=== PATIENT | male | born 1995 | race Caucasian/White ===

== ENCOUNTER 2021-12-09 12:43 | Emergency (ER) | payer OTHER, SELFPAY ==
[2021-12-09 12:52] VITALS: BP 139/91; PULSE 93; RESP 18; TEMP 37.2; O2SAT 100
--- NOTE | 2021-12-09 13:25 | ED.SKABFB ---
HPI - Skin/Abscess/Foreign Bdy General Chief complaint: Skin/Abscess/Foreign Body Stated complaint: left leg infection Time Seen by Provider: 12/09/21 13:00 Source: patient, RN notes reviewed and old records reviewed Mode of arrival: ambulatory Limitations: no limitations History of Present Illness HPI narrative: 26-year-old male presents to [facility] care with complaints of 3-day history of open draining wound to the back of his left lower leg. He states he thinks it started as a mosquito bite and he thins he has scratched it causng open wound which is draining some yellow stuff, he cleansed it with H2O2 and put Neosporin ointment on wound and covered with dressing. Tetanus is not up to date. MD complaint: lesion Tetanus up to date: unsure Treatments prior to arrival: other (Hydrogen peroxide and Neosporin ointment) Related Data Home Medications Medication Instructions Recorded Confirmed clonazepam 0.5 mg tablet 0.5 mg PO HS 12/09/21 12/09/21 Allergies Allergy/AdvReac Type Severity Reaction Status Date / Time No Known Allergies Allergy Verified 12/09/21 13:19 Review of Systems Review of Systems: CONSTITUTIONAL: Denies fever, chills, or sweats. EYES: Denies visual changes, redness, or discharge. ENT: Denies rhinorrhea, congestion, sore throat, or otalgia. CARDIOVASCULAR: Denies chest pain, palpitations, or edema. RESPIRATORY: Denies cough or dyspnea. GASTROINTESTINAL: Denies abdominal pain, nausea, vomiting, or diarrhea. GENITOURINARY: Denies dysuria or hematuria. SKIN: Denies rash or itching.positive for open wound 1cm X 2cm open draining wound posterior left lower leg with surrounding redness and warm, yellow tinged drainage noted. MUSCULOSKELETAL: Denies back pain, joint pain, or myalgia. NEUROLOGIC: Denies headache, numbness, or weakness. PSYCHIATRIC: Positive for anxiety or depression. All systems reviewed & are unremarkable except as noted in HPI and below PMFSH Past Medical History Medical History (Updated 12/11/21 @ 21:32 by Anuja Rueda NP) Anxiety Social History Social History (Updated 12/11/21 @ 21:33 by Anuja Rueda NP) Smoking packs per day: 0.5 Smoking cigarettes per day: 10.0 Years smoked: 9 Smoking pack-years: 4.50 Smoking status: Current every day smoker Tobacco type: cigarettes Alcohol intake: current Alcohol use details: social Substance use type: does not use Living arrangements: with family Gender identity (if verbalized by the patient): Male Comments At time of signature, agree with nursing past medical, surgical, social and family history. There is no relevant family history pertinent to the presenting complaint Exam Narrative: GENERAL: Well-appearing, well-nourished, and in no acute distress. HEAD: Normocephalic, atraumatic. EYES: PERRLA and EOMI. ENT: Nares clear, no rhinorrhea or epistaxis. Mucous membranes moist.TM's normal with good light reflex, throat pink with no lesions or exudates. NECK: Supple.No lymphadenopathy CHEST: Clear to auscultation. No respiratory distress.SAO2 100% on room air HEART: Regular rate and rhythm. No murmur heard. Normal peripheral pulses. ABDOMEN: Soft, nontender, nondistended, normal active bowel sounds. EXTREMITIES: Normal range of motion. No edema. SKIN: Warm, dry, no rash. 1cmX 2cm .open draining wound to posterior aspect of left lower leg with some yellowish drainage, surrounding redness with some warmth of tissue NEURO: No focal deficits. Alert and oriented x3. Course Course Level of Care: Express Care Visit Vital Signs Vital signs: Vital Signs Temperature 37.2 C 12/09/21 12:52 Pulse Rate 93 12/09/21 12:52 Respiratory Rate 18 12/09/21 12:52 Blood Pressure 139/91 H 12/09/21 12:52 Pulse Oximetry 100 12/09/21 12:52 Oxygen Delivery Room Air 12/09/21 12:52 Temperature 37.2 C 12/09/21 12:52 Pulse Rate 93 12/09/21 12:52 Respiratory Rate 18 12/09/21 12:52 Blood Pressure 139/91 H 0
[2021-12-09] MEDS: TETANUS,DIPHTHERIA,AC PERTUSSIS ADULT (0.5 ML) BOOSTRIX IM (13:50)
== END 2021-12-09 14:05 | disposition home or self-care (01) ==
PROVIDERS: Emergency Provider Registered Nurse; PCP Nurse Practitioner Family
DX: L03.116 Cellulitis of left lower limb (principal); S81.802A Unspecified open wound, left lower leg, initial encounter; X58.XXXA Exposure to other specified factors, initial encounter; Z23 Encounter for immunization; F17.210 Nicotine dependence, cigarettes, uncomplicated; F41.9 Anxiety disorder, unspecified
CPT/HCPCS: 90471; 90715; 99213; G0463

== ENCOUNTER 2024-01-15 11:28 | Emergency (ER) | payer OTHER, MEDICAID, SELFPAY ==
--- NOTE | ~2024-01-15 | XR_ITS ---
HISTORY: injury TWIST X 1 DAY LAT MALLEOLAR SWELLING PAIN COMPARISON: None TECHNIQUE: 3 views of the left ankle FINDINGS: Soft tissue swelling is identified over the lateral malleolus. No acute or subacute fracture is appreciated. No significant joint space narrowing or degenerative disease. IMPRESSION: Soft tissue swelling without acute fracture. Reviewed, dictated and finalized at location A.
[2024-01-15 11:31] VITALS: BP 136/85; PULSE 97; RESP 17; TEMP 36.6; O2SAT 98
--- NOTE | 2024-01-15 12:23 | ED.LOWEXIN ---
HPI - Extremity Injury (Lower) General Chief Complaint: Extremity Injury, Lower Stated Complaint: left ankle injury Time Seen by Provider: 01/15/24 11:44 History of Present Illness HPI Narrative: Patient rolled his ankle yesterday going down the stairs, has been using his crutches because it hurts to stand or walk, has been using ice and keeping his leg elevated. Related Data Home Medications Medication Instructions Recorded Confirmed clonazepam 0.5 mg tablet 0.5 mg PO HS 12/09/21 12/09/21 Allergies Allergy/AdvReac Type Severity Reaction Status Date / Time No Known Allergies Allergy Verified 01/15/24 11:28 Review of Systems Review of Systems: All systems reviewed & are unremarkable except as noted in HPI and below PMFSH Past Medical History Medical History (Updated 01/15/24 @ 12:11 by January Beal MD) Anxiety Social History Social History (Updated 12/11/21 @ 21:33 by Anuja Rueda NP) Smoking packs per day: 0.5 Smoking cigarettes per day: 10.0 Years smoked: 9 Smoking pack-years: 4.50 Smoking status: Current every day smoker Tobacco type: cigarettes Alcohol intake: current Alcohol use details: social Substance use type: does not use Living arrangements: with family Gender identity (if verbalized by the patient): Male Exam Narrative: EXAMINATION OF ORGAN SYSTEMS/BODY AREAS: Constitutional: Vital signs per nursing GENERAL:[No acute distress, non-toxic appearing.] HEAD: Normal with no signs of head trauma. EYES: EOMI, conjunctiva normal ENT: Hearing grossly intact LUNGS: Nonlabored breathing. HEART: [Regular rate and rhythm], normal DP pulse ABD: [Soft], [nontender to palpation] EXT: Slight swelling and tenderness lateral left ankle; no swelling or tenderness to the foot SKIN: tiny abrasion right anterior lower leg NEURO: [Alert and oriented x 3. No gross focal sensory or strength deficits.] PSYCH: Normal affect Course Vital Signs Vital signs: Vital Signs Temperature 97.9 F 01/15/24 11:31 Pulse Rate 97 01/15/24 11:31 Respiratory Rate 17 01/15/24 11:31 Blood Pressure 136/85 01/15/24 11:31 Pulse Oximetry 98 01/15/24 11:31 Oxygen Delivery Room Air 01/15/24 11:31 Temperature 97.9 F 01/15/24 11:31 Pulse Rate 97 01/15/24 11:31 Respiratory Rate 17 01/15/24 11:31 Blood Pressure 136/85 01/15/24 11:31 Pulse Oximetry 98 01/15/24 11:31 Oxygen Delivery Room Air 01/15/24 11:31 MDM - Extremity Injury (Lower) MDM Narrative Medical decision making narrative: MEDICAL DECISION MAKING AND COURSE IN THE ED WITH INTERPRETATION/REVIEW OF DIAGNOSTIC STUDIES: Electronic medical record was reviewed. This patient was seen by myself. Patient presented to the ED with complaint of [left ankle pain after inversion injury]. Vitals [were within acceptable limits]. Physical exam revealed tenderness at lateral left ankle. Based on the patient's history and physical exam, I am concerned for fracture vs sprain. Ankle x-ray thankfully negative for acute fracture on my independent interpretation ENRIQUE wrap applied to injured extremity. Patient given strict return precautions if pain is worse or there is poor blood flow to the extremity, and advised to rest the limb and to followup with orthopedics as needed. Discharge Plan Discharge Clinical Impression: Ankle sprain and strain Patient Disposition: Home, Self-Care Condition: Stable Instructions: Antibiotic Form, Ankle Sprain (ED) Additional Instructions: Your x-ray does not show any broken ankle. Keep your ankle in a Enrique wrap, keep it elevated, use ice for the 1st few days, take Tylenol and ibuprofen as needed, and follow-up with your doctor. You can always come back to the ER for any further issues. Prescriptions: New acetaminophen [Tylenol Extra Strength] 500 mg tablet 1,000 mg PO Q6H PRN (Reason: pain) Qty: 50 0RF ibuprofen 600 mg tablet 600 mg PO TID PRN (Reason: f
--- NOTE | 2024-01-15 12:30 | PC.NURSE ---
pt did not want enid wrap and crutches, pt had his own
== END 2024-01-15 12:30 | disposition home or self-care (01) ==
PROVIDERS: Emergency Provider Emergency Medicine; PCP Nurse Practitioner Family
DX: S93.402A Sprain of unspecified ligament of left ankle, initial encounter (principal); W10.9XXA Fall (on) (from) unspecified stairs and steps, initial encounter; F41.9 Anxiety disorder, unspecified; F17.210 Nicotine dependence, cigarettes, uncomplicated
CPT/HCPCS: 73610; 99283